=== PATIENT | male | born 1935 | race Caucasian/White ===

== ENCOUNTER → 2017-03-23 | Outpatient (CLI) | payer OTHER ==
[~2017-03-23] MED LIST: AMLODIPINE BESYL5 MG PO; DOCUSATE SODIU100 MG PO; FUROSEMIDE40 MG PO; HYTRIN1 M1 PO; HYTRIN2 M1 PO; KCL PO; LASIX PO; LIPITOR40 MG PO; LISINOPRIL PO; LISINOPRIL20 MG PO; LISINOPRIL5 MG PO; LOPRESSOR PO; LORTAB 5-325 M1 EACH PO; METOPROLOL SUCC25 MG PO; METOPROLOL TART25 MG PO; MILK OF MAGNESIA PO; MILLIPRED DP5 M1; NORVASC2.5 MG PO; OMEPRAZOLE40 M1 PO; OMEPRAZOLE40 MG PO; POTASSIUM CHLO10 MEQ PO; TAMOXIFEN10 MG PO; TRAMADOL HCL50 M1 PO; TRAMADOL HCL50 M2 PO; VIBRAMYCIN100 M1 PO
--- NOTE | ~2017-03-23 | CR63 ---
[facility] A Service [facility] RADIOLOGY TEXT RESULTS PATIENT: MINERVA HUDSON LOCATION: [facility] : 31 UNIT #: [id number] AGE: [address]: Olesya Naranjo SEX: M ORDER DR: [id number] [place] [id number] O MR#: [id number] Acc #: [id number] NAME: MINERVA HUDSON : 1935 SEX: M STUDY DATE/TIME: 03/23/2017 9:45 UNIT: [facility] ROOM: STUDY DESCRIPTION: CR Chest 2 View Attending Physician: Olesya Naranjo A.P.R.N. Referring Physician: Olesya Naranjo A.P.R.N. Ordering Physician: Olesya Naranjo A.P.R.N. Primary Care Physician: Olesya Naranjo A.P.R.N. MEDICAL IMAGING REPORT This report is preliminary unless electronic signature is present. EXAM Chest x-ray. HISTORY Shortness of breath chronically over the past 2 months accompanied by cough. Previous history of smoking. Previous history of mastectomy. COMPARISON 10/28/14 TECHNIQUE Two views of the chest were obtained. FINDINGS The right diaphragm is elevated unchanged from the previous exam. The lungs are clear with no new infiltrates. The heart and mediastinum have a normal configuration with normal vascular markings. IMPRESSION Chronic elevation of the right diaphragm. No active disease. Dictated by... Shashank Hernandez M.D. THIS IS AN ELECTRONICALLY VERIFIED REPORT Shashank Hernandez M.D. at 03/23/2017 3:46 PM RLF/humberto TD: 03/23/2017 13:42 JOB #: [id number] MEDICAL IMAGING REPORT [facility] A [facility] RADIOLOGY TEXT RESULTS PATIENT: MINERVA HUDSON LOCATION: [facility] : 31 UNIT #: [id number] AGE: [address]: Olesya Naranjo SEX: M ORDER DR: Page 1 of 1
--- NOTE | ~2017-03-23 | CR126 ---
[facility] A Service of [facility] RADIOLOGY TEXT RESULTS PATIENT: MINERVA HUDSON LOCATION: [facility] : [birth year] UNIT #: [id number] AGE: [address]: Olesya NaranjoP SEX: M ORDER DR: [id number] [place] [id number] O MR#: [id number] Acc #: [id number] NAME: MINERVA HUDSON : 1935 SEX: M STUDY DATE/TIME: 03/23/2017 9:56 UNIT: SRA ROOM: STUDY DESCRIPTION: CR Foot Complete Min 3 View Lt Attending Physician: Olesya Naranjo A.P.R.N. Referring Physician: Olesya Naranjo A.P.R.N. Ordering Physician: Olesya Naranjo A.P.R.N. Primary Care Physician: Olesya Naranjo A.P.R.N. MEDICAL IMAGING REPORT This report is preliminary unless electronic signature is present. EXAM Left foot HISTORY Foot pain beginning December 2016 with a heel ulcer. TECHNIQUE 3 views of the foot were obtained. FINDINGS 3 views of the foot show a plantar heel spur. There is a pes planus deformity. There is no evidence of radiodense foreign body and no active cortical bone destruction is seen to suggest osteomyelitis. Moderate joint space narrowing is seen at the intertarsal joints and at the first MTP joint and first interphalangeal joint. IMPRESSION Moderate degenerative changes as described above. Pes planus. Heel spur. No evidence of osteomyelitis radiographically. Dictated by... Shashank Hernandez M.D. THIS IS AN ELECTRONICALLY VERIFIED REPORT Shashank Hernandez M.D. at 03/23/2017 3:46 PM GRACEF/val TD: 03/23/2017 13:27 JOB #: [id number] [facility] A Service of [facility] RADIOLOGY TEXT RESULTS PATIENT: MINERVA HUDSON LOCATION: [facility] : 31 UNIT #: [id number] AGE: [address]: Olesya Naranjo SEX: M ORDER DR: MEDICAL IMAGING REPORT Page 1 of 1
== END | disposition home or self-care (01) ==
LOC: SRAD 09:38
DX: L97.429 Non-pressure chronic ulcer of left heel and midfoot with unspecified severity (principal); M21.42 Flat foot [pes planus] (acquired), left foot; M77.32 Calcaneal spur, left foot; J98.6 Disorders of diaphragm
CPT/HCPCS: 71020; 73630